=== PATIENT | female | born 1990 | race Caucasian/White ===

== ENCOUNTER 2016-12-12 16:19 | Emergency (ER) | payer BC ==
[~2016-12-12 16:19] MED LIST: ACETAMINOPHEN; BUTALBITAL; CAFFEINE; DICLOFENAC SODI50 M1 PO; MERINA; NARATRIPTAN PO; NON; NORCO 5/325 TAB1 TAB PO; NORTRIPTYLINE H25 M1 PO; SERTRALINE HCL100 M5 PO; TOPAMAX50 M3 PO; TRAMADOL; TRAMADOL HCL50 M2 PO; TYLENOL325 M1 PO; ULTRAM50 MG PO; ZOFRAN ODT4 MG PO; ZOFRAN4 M2 PO; [UNRECOGNIZED DRUG - OTHER] PO; [UNRECOGNIZED DRUG - REMARK]
[2016-12-12] MEDS ORDERED: KLONOPIN0.5 M1 PO (16:54)
[2016-12-12] MEDS ORDERED: KEPPRA500 M3 PO (16:56)
[2016-12-12] MEDS ORDERED: ZEMBRACE S3 MG/0.5 M SC (16:57)
[2016-12-12 17:26] LABS: BASO % 0.1 % (0-2); EOS % 2.3 % (0-7); EOSINOPHIL ABSOLUTE COUNT 0.2 tho/cmm (0.0-0.7); HCT-HEMATOCRIT 39.8 % (34.0-49.0); HGB-HEMOGLOBIN 13.9 gm/dl (12.0-15.5); IMMATURE GRANULOCYTES ABSOLUTE 0.01 tho/cmm (0-0.03); IMMATURE GRANULOCYTES PERCENT 0.1 % (0-0.3); LYMPH % 29.4 % (20-45); LYMPH ABSOLUTE COUNT 2.3 tho/cmm (0.8-4.5); MCH (MEAN CORPUSCULAR HGB) 28.9 pg (28.0-32.0); MCHC MEAN CORPUSCULAR HGB CONC 34.9 % (32.0-36.0); MCV (MEAN CELL VOLUME) 82.7 fl (82.0-96.0); MEAN PLATELET VOLUME 11.2 cmc (9.4-12.4); MONO % 8.6 % (0-12); MONOCYTE ABSOLUTE COUNT 0.7 tho/cmm (0.0-1.2); NEUTROPHIL ABSOLUTE COUNT 4.6 tho/cmm (1.6-8.0); NEUTROPHIL-AUTOMATED 4.6 tho/cmm (1.6-8.0); NEUTROPHILS % 59.5 % (40-80); PLATELET COUNT 244 tho/cmm (150-450); RED BLOOD COUNT 4.81 mil/cmm (4.00-5.20); RED CELL DISTRIBUTION WIDTH 12.9 % (12.4-16.4); WHITE BLOOD COUNT 7.8 tho/cmm (4.0-10.0)
[2016-12-12 17:41] LABS: ALBUMIN 3.9 g/dl (3.5-5.0); ALKALINE PHOSPHATASE 87 U/L (33-138); ALT/SGPT 32 U/L (12-78); BILIRUBIN,TOTAL 0.2 mg/dl (0-1.5); BLOOD UREA NITROGEN 10 mg/dl (6-24); CALCIUM 8.6 mg/dl (8.5-10.5); CARBON DIOXIDE-VENOUS 24 mmol/L (22-32); CHLORIDE 107 mmol/l (96-110); CREATININE 0.67 mg/dl (0.50-1.10); GLUCOSE 116 mg/dL (70-110); LIPASE 107 U/L (73-393); SODIUM 141 mmol/L (135-145); eGFR VALUE FOR BLACK >90 mL/Min
[2016-12-12 17:44] LABS: ANION GAP 14 mmol/L (0-20); AST/SGOT 16 U/L (10-40); POTASSIUM 3.6 mmol/L (3.7-5.1)
[2016-12-12 18:13] LABS: URINE BILIRUBIN NEGATIVE (NEG); URINE BLOOD NEGATIVE (NEG); URINE GLUCOSE (UA) NEGATIVE (NEG); URINE KETONE NEGATIVE (NEG); URINE LEUKOCYTE ESTERASE NEGATIVE (NEG); URINE NITRITE NEGATIVE (NEG); URINE PROTEIN NEGATIVE (NEG)
[2016-12-12 18:14] LABS: URINE APPEARANCE CLEAR; URINE COLOR YELLOW
[2016-12-12] MEDS ORDERED: PEPCID20 M1 PO (18:23)
[2016-12-12] MEDS ORDERED: ZOFRAN ODT4 MG PO (18:23)
[2017-03-21] MEDS ORDERED: SILENOR6 M1 PO (22:59)
[2017-03-21] MEDS ORDERED: LYRICA50 MG/CAP PO (23:02)
== END 2016-12-12 18:40 ==
LOC: EDMED 16:19
PROVIDERS: Emergency Medicine
DX: K29.70 Gastritis, unspecified, without bleeding (principal)
CPT/HCPCS: J1170; J2405; J7030